=== PATIENT | female | born 1975 | race Caucasian/White ===

== ENCOUNTER 2021-01-29 17:32 | Emergency (ER) | payer OTHER ==
[~2021-01-29] VITALS: Ht 180.3 cm; Wt 96.6 kg
[~2021-01-29 17:32] MED LIST: ACETAMINOPHEN-1 EAC1 PO; APAP W/CODEINE1 TA2 PO; DOXYCYCLINE 10100 MG PO; ZPAK PO
[2021-01-29] MEDS ORDERED: CEPHALEXIN500 MG PO (18:51)
[2021-01-29 19:02] VITALS: BP 144/77
== END 2021-01-29 19:02 | disposition home or self-care (01) ==
LOC: M.ERS 17:32
DX: S01.81XA Laceration without foreign body of other part of head, initial encounter (principal); Z79.899 Other long term (current) drug therapy; Z79.2 Long term (current) use of antibiotics; Z88.6 Allergy status to analgesic agent; Z91.018 Allergy to other foods; Y08.89XA Assault by other specified means, initial encounter; Y93.89 Activity, other specified; Y92.89 Other specified places as the place of occurrence of the external cause; Y99.8 Other external cause status